=== PATIENT | male | born 1985 | race Caucasian/White ===

== ENCOUNTER 2018-10-18 09:51 | Emergency (ER) | payer SELFPAY ==
--- NOTE | 2018-10-18 11:27 | ED ---
Upper Extremity Pain - HPI Summary HPI Summary: Pt here w/ Rt pinky swelling x months. Has had this intermittently since fx'ing over 1 year ago. Splinted on his own and healed well however developed swelling x 2. 1st time he lanced and drained himself - purulent fluids was expressed. 2nd time minimal purulence and more blood was expressed (this was > 1 month ago) . Dneies pain, fever, redness, streaking, drainage. Just here today as his PCP said there's nothing he can do for him. - History of Current Complaint Chief Complaint: EDExtremityUpper Stated Complaint: RIGHT HAND INJURY Time Seen by Provider: 10/18/18 10:02 Hx Obtained From: Patient - Allergies/Home Medications Allergies/Adverse Reactions: Allergies Allergy/AdvReac Type Severity Reaction Status Date / Time No Known Allergies Allergy Verified 10/18/18 10:04 PMH/Surg Hx/FS Hx/Imm Hx Previously Healthy: Yes Endocrine/Hematology History: Denies: Hx Anticoagulant Therapy, Hx Blood Disorders, Autoimmune Disease Musculoskeletal History: Reports: Hx of Fracture(s) - 5th finger Infectious Disease History: No Infectious Disease History: Denies: Traveled Outside the [place] in Last 30 Days - Social History Alcohol Use: Daily Substance Use Type: Reports: Marijuana Hx Tobacco Use: Yes Smoking Status (MU): Current Every Day Smoker Amount Used/How Often: 1 PPD Review of Systems Constitutional: Negative Negative: Fever, Chills, Fatigue Negative: Vomiting, Nausea Positive: no symptoms reported Positive: Edema. Negative: Arthralgia, Myalgia, Decreased ROM Skin: Negative Negative: Rash, Bruising Neurological: Negative Psychological: Normal All Other Systems Reviewed And Are Negative: Yes Physical Exam Triage Information Reviewed: Yes Vital Signs On Initial Exam: Initial Vitals Temp Pulse Resp BP Pulse Ox 98.4 F 104 16 152/97 98 10/18/18 09:59 10/18/18 09:59 10/18/18 09:59 10/18/18 09:59 10/18/18 09:59 Vital Signs Reviewed: Yes Appearance: Positive: Well-Appearing, No Pain Distress, Well-Nourished Skin: Positive: Warm, Skin Color Reflects Adequate Perfusion, Dry - no erythema , no ecchymosis, no fever to touch, no streaking - skin is well perfused and same color as surrounding tissue - firm, well defined mass w/o fluctuance - NTTP Head/Face: Positive: Normal Head/Face Inspection Eyes: Positive: EOMI ENT: Positive: Hearing grossly normal Respiratory/Lung Sounds: Positive: Breath Sounds Present Cardiovascular: Positive: Pulses are Symmetrical in both Upper and Lower Extremities Musculoskeletal: Positive: Strength/ROM Intact. Negative: Pain @ Neurological: Positive: Normal, Sensory/Motor Intact, Alert, Oriented to Person Place, Time, CN Intact II-III Psychiatric: Positive: Normal Diagnostics - Vital Signs Vital Signs Temp Pulse Resp BP Pulse Ox 10/18/18 09:59 98.4 F 104 16 152/97 98 - Laboratory Lab Statement: Any lab studies that have been ordered have been reviewed, and results considered in the medical decision making process. Course/Dx - Course Course Of Treatment: Wet read as radiology delayed: no fx, no dislocation - appears to have soft tissue mass w/o effusion. Chronic issue - advised f/u w/ hand specialist. - Diagnoses Provider Diagnoses: Mass of right finger Discharge - Sign-Out/Discharge Documenting (check all that apply): Patient Departure - Discharge Plan Condition: Stable Disposition: HOME Prescriptions: Clindamycin HCl 300 mg PO QID #40 capsule Referrals: Kisha Hernandez MD [Medical Doctor] - Additional Instructions: The definitive diagnosis of the bump on your finger was not identified today however it is recommended that you follow-up with a hand specialist given your history of fracture and what sounds like infection. You do not appear to have an infection today however if it becomes red/swollen/hot or you develop streaking up your hand, fever, chills, you may start antibiotic. This will be sent to your pharmacy. Call hand specialist Saturday for appointment. - Billing Disposition and Condition Condition: STABLE Disposition: Home
[2018-10-18 11:42] VITALS: BP 131/97
== END 2018-10-18 11:35 | disposition home or self-care (01) ==
LOC: ED 09:51
DX: R22.31 Localized swelling, mass and lump, right upper limb (principal); F17.210 Nicotine dependence, cigarettes, uncomplicated
CPT/HCPCS: 73140; 99282

== ENCOUNTER 2018-12-26 09:20 | Day surgery (SDC) | payer BC ==
--- NOTE | 2018-12-12 10:20 | HP ---
HISTORY AND PHYSICAL: DATE OF ADMISSION/SURGERY: 12/26/18 DATE OF OFFICE VISIT: 12/11/18 SURGEON: Kisha Hernandez MD * (DICTATED BY URBANO PACK) PROCEDURE: Right small finger excision of mass. CHIEF COMPLAINT: Right small finger pain and swelling. HISTORY OF PRESENT ILLNESS: Mr. Siegel is a 33-year-old gentleman who fractured his right small finger last summer. Over the last 6 months, he has had increased swelling of the right small finger with some mild tenderness to palpation. He has failed conservative treatment and elected to have the mass removed. PAST MEDICAL HISTORY: High blood pressure, high cholesterol, and alcohol addiction. PAST SURGICAL HISTORY: Denies. CURRENT MEDICATIONS: None. ALLERGIES: None. FAMILY HISTORY: Diabetes and high blood pressure. SOCIAL HISTORY: He is a 33-year-old gentleman, lives alone. He works in construction. He does smoke tobacco. REVIEW OF SYSTEMS: A complete 14-point review of systems was reviewed with the patient. It was all negative or noncontributory. PHYSICAL EXAMINATION GENERAL: He is well developed, well nourished, in no acute distress. VITAL SIGNS: He stands 72 inches tall, weighs 166 pounds. His blood pressure is 138/74 and his heart rate is 68. HEENT: Normocephalic, atraumatic. NECK: Supple. No palpable lymph nodes. PULMONARY: The lungs are clear to auscultation bilaterally. CARDIO: Regular rate and rhythm. Strong S1, S2. MUSCULOSKELETAL: Right upper extremity: The skin is intact. There are no open wounds or abrasions. There is a cystic mass on the right small finger at the area of the DIP joint. He has a 2+ palpable pulse and intact sensation. ASSESSMENT AND PLAN: Mr. Siegel is a 33-year-old gentleman with an inclusion cyst of the right small finger. He has elected to have the right small finger mass excised. The surgery is scheduled for 12/26/[address] Hernandez discussed the risks and benefits of the surgery at today's visit and all of his questions were answered. He will follow up with Dr. Hernandez 7 to 10 days after the surgery. URBANO PACK [id number]/[facility] #: [id number] [facility]PITALVanessa
[~2018-12-26 09:20] MED LIST: Acetaminophen TAB* 325 MG ONE; Acetaminophen TAB* 325 MG PO ONE; Buffered Lidocaine 1% SYRIN* 1 ML/SYRINGE INTRADERM ONE; Gabapentin CAP(*) 300 MG ONE; Gabapentin CAP(*) 300 MG PO ONE; Lactated Ringers 1000 ML Bag* 1,000 ML IV SCH; Lidocaine 1% INJ* 10 MG/ML 30 ML SDV ONE
[2018-12-26] MEDS ORDERED: Midazolam* 1 MG/ML 2 ML VIAL (2 MG) ONE (11:37)
[2018-12-26] MEDS ORDERED: fentaNYL* 50 MCG/ML 2 ML VIAL (100 MCG VIAL) ONE (11:37)
[2018-12-26] MEDS ORDERED: fentaNYL* 50 MCG/ML 2 ML VIAL (100 MCG VIAL) IV PRN (11:39)
[2018-12-26] MEDS ORDERED: Ondansetron INJ* 2 MG/ML VIAL IV PRN (11:39)
[2018-12-26] MEDS ORDERED: Levalbuterol 0.63MG/3ML NEB* UNIT OF USE INH PRN (11:39)
[2018-12-26] MEDS ORDERED: Naloxone* 0.4 MG/ML 1 ML VIAL IV PRN (11:39)
[2018-12-26] MEDS ORDERED: DiMENhydriNATE IV* 50 MG/ML VIAL IV PUSH PRN (11:39)
[2018-12-26] MEDS ORDERED: Propofol* 10 MG/ML 20 ML BTL ONE (11:42)
[2018-12-26] MEDS ORDERED: Lidocaine 2% PF * 5 ML VIAL ONE (11:42)
[2018-12-26] MEDS ORDERED: Ketorolac INJ* 30 MG/ML 1 ML VIAL ONE (11:42)
[2018-12-26 12:50] VITALS: BP 114/83
--- NOTE | 2018-12-26 14:11 | OP ---
DATE OF OPERATION: 12/26/18 [facility] DATE OF : 81 SURGEON: Kisha Hernandez MD CLERGY MEMBER: URBANO Gregory ANESTHESIA: Local MAC. PRE-OP DIAGNOSIS: Right small finger mass. POST-OP DIAGNOSIS: Right small finger mass. OPERATIVE PROCEDURE: Removal of right small finger mass. ESTIMATED BLOOD LOSS: Zero. TOURNIQUET TIME: About 20 minutes. INDICATIONS FOR PROCEDURE: Everton is a 33-year-old male who has a painful and enlarging mass on the ulnar aspect of his right little finger. He presents for excision. DESCRIPTION OF PROCEDURE: The patient was brought to the operating room, was given a sedation anesthetic and a local infiltration of 10 cc of 1% plain lidocaine as a digital block to the right small finger. The skin of his left hand and forearm was prepped and draped in the usual sterile fashion. The hand and forearm were exsanguinated and the tourniquet elevated to 250 mmHg. An oblique incision was made centered over the mass and we dissected bluntly through the subcutaneous tissue. The digital neurovascular bundle was preserved. The mass appeared to be an inclusion cyst. It was removed in its entirety. There were 2 separate sections, one ulnar volar and the other was dorsal. They were sent for pathology. The wound was irrigated and the skin edges were reapproximated with 4-0 nylon suture. The wound was dressed with Xeroform, 4x4, Webril, and an Romaine wrap. The patient tolerated the procedure well and was brought to the recovery room in good condition. [id number]/[facility] #: [id number] [facility]ITALVanessa
== END 2018-12-26 13:04 | disposition home or self-care (01) ==
LOC: OREAST 09:20
PROVIDERS: ATTEND Orthopaedic Surgery
DX: L72.0 Epidermal cyst (principal); I10 Essential (primary) hypertension; Z72.0 Tobacco use; E78.00 Pure hypercholesterolemia, unspecified
CPT/HCPCS: 88304; A9270-GY; J1885; J2250; J2704; J3010